=== PATIENT | female | born 1985 | race Hispanic/Latino ===

== ENCOUNTER 2023-10-27 17:49 | Emergency (ER) | payer BC ==
[~2023-10-27] VITALS: Ht 167.6 cm; Wt 82.6 kg
[2023-10-27 18:26] LABS: INFLUENZA TYPE A Negative For Type A (NEGATIVE); INFLUENZA TYPE B Negative For Type B (NEGATIVE)
[2023-10-27 18:49] LABS: COVID19 (SARS ANTIGEN RAPID) PRESUMPTIVE NEGATIVE (NEGATIVE)
[2023-10-27] MEDS: 0.9%NACL 1000ML 1,000 ML IV ONE (18:59)
[2023-10-27] MEDS: acetaMINOPHEN 500 MG TABLET PO ONE (19:00)
[2023-10-27] MEDS: ONDANSETRON 4MG INJ IVP ONE (19:00)
[2023-10-27 19:11] LABS: BASOPHILS # (AUTO) 0.01 K/uL (0.00-0.20); BASOPHILS % (AUTO) 0.3 % (0.0-5.0); HEMATOCRIT 27.8 % (36-48); IMMATURE GRANULOCYTE ABSOLUTE 0.02 K/uL (0-1); LYMPHOCYTES # (AUTO) 0.4 K/uL (1.0-4.8); LYMPHOCYTES % (AUTO) 14.6 % (21.0-51.0); MEAN CORPUSCULAR HEMOGLOBIN 24.9 pg (27.0-33.0); MEAN CORPUSCULAR HGB CONC 30.9 g/dL (32.0-36.0); MEAN CORPUSCULAR VOLUME 80.3 fL (79-99); MONOCYTES # (AUTO) 0.2 K/uL (0.1-1.0); MONOCYTES % (AUTO) 6.6 % (3.0-13.0); NEUTROPHILS # (AUTO) 2.4 K/uL (1.8-7.7); NEUTROPHILS % (AUTO) 77.8 % (40.0-77.0); PLATELET COUNT (AUTO) 150 K/uL (130-400); RED BLOOD CELL COUNT(AUTO) 3.46 MIL/uL (4.00-5.50); RED CELL DISTRIBUTION WIDTH 17.8 % (11.0-15.5)
[2023-10-27 19:59] LABS: CREATININE 1.1 mg/dL (0.5-1.0); POTASSIUM 3.1 mmol/L (3.5-5.1)
[2023-10-27 20:24] LABS: APPEARANCE,URINE CLEAR (CLEAR); BILIRUBIN,URINE NEGATIVE (NEGATIVE); COLOR,URINE COLORLESS (YELLOW); GLUCOSE, URINE (UA) NEGATIVE (NEGATIVE); KETONES,URINE NEGATIVE (NEGATIVE); LEUKOCYTE ESTERASE ,URINE NEGATIVE Leu/uL (NEGATIVE); NITRATE,URINE NEGATIVE (NEGATIVE); OCCULT BLOOD,URINE NEGATIVE (NEGATIVE); PROTEIN,URINE NEGATIVE (NEGATIVE); UROBILINOGEN,URINE 0.2 mg/dL (0.2-1.0)
[2023-10-27 20:30] LABS: ADD UA MICROSCOPIC YES; HCG,QUALITATIVE URINE NEGATIVE (NEGATIVE)
[2023-10-27 20:31] LABS: BACTERIA,URINE RARE /HPF (None Seen); MUCUS,URINE RARE LPF (None Seen); OTHER CASTS, URINE 1 /LPF (None Seen); SQUAMOUS EPITHELIAL CELL,UR FEW /HPF (0-2)
[2023-10-27] MEDS: POTASSIUM BICARB/CIT AC 25 MEQ TABLET.EFF PO ONE (20:31)
[2023-10-27 20:39] LABS: BAND NEUTROPHILS % (MANUAL) 18 % (0-2); EOSINOPHILS % (MANUAL) 1 % (1-6); LYMPHOCYTES % (MANUAL) 11 % (22-44); MONOCYTES % (MANUAL) 3 % (2-9); SEGMENTED NEUTROPHILS % 67 % (40-70); TOTAL CELLS COUNTED 100
[2023-10-27 20:40] LABS: MAN.DIFF COMMENT-IMPRESSION MANUAL DIFFERENTIAL
[2023-10-27] MEDS: KETOROLAC 30MG VIAL (30MG/ML) IVP ONE (21:03)
[2023-10-27 21:05] VITALS: TEMP 101.4
[2023-10-27] MEDS ORDERED: ONDA-243 PO (22:27)
[2023-10-27 22:33] VITALS: BP 132/72; PULSE 100; RESP 18; O2SAT 99
== END 2023-10-27 22:37 | disposition home or self-care (01) ==
LOC: EDH 17:49
DX: B34.9 Viral infection, unspecified (principal); D64.9 Anemia, unspecified; R50.9 Fever, unspecified; H92.03 Otalgia, bilateral; E03.9 Hypothyroidism, unspecified; E78.00 Pure hypercholesterolemia, unspecified; Z20.822 Contact with and (suspected) exposure to COVID-19; Z79.899 Other long term (current) drug therapy
CPT/HCPCS: 99284; 96374; 96361; 96375; 87426; 80048; 85025; 87880; 87804 ×2; 81001; 81025; 36415; J7030; J2405; J1885

== ENCOUNTER 2024-04-01 06:17 | Emergency (ER) | payer BC ==
[~2024-04-01] VITALS: Ht 167.6 cm; Wt 81.6 kg
[~2024-04-01 06:17] MED LIST: ONDA-243 PO
--- NOTE | 2024-04-01 06:22 | NUR ---
COVID, FLU, STREP SWABS COLLECTED AND SENT [facility] PROVIDED
--- NOTE | 2024-04-01 06:34 | ERN ---
ED Note History of Present Illness Stated Complaint: COUGH, NAUSEA, SOB Chief Complaint: Cough Time Seen by MD: 06:36 Dictation: This is a 38-year-old female who presented to the emergency room with complaints of generalized body weakness cough shortness of breath that started yesterday. She denied any hemoptysis or fevers. No recent travel or new pets at home. She also reported that her she felt her face was puffy with sinus congestion. Very mild sputum production Temperature 97.7 pulse 78 respirations 16 blood pressure 164/74 with a pulse oximetry of 98% on room Her chronic medical problems include hypercholesterolemia and hypothyroidism Allergies: Coded Allergies: No Known Allergies (Unverified Allergy, Unknown, 10/27/23) Home Meds Active Scripts Azithromycin (Azithromycin) 250 Mg Tablet, 1 TAB PO AD for 5 Days, #6 TAB 0 Refills 2 the first day followed by 1 for days 2-5 Prov:RADHA CHAPPELL MD 04/01/24 Prednisone (Prednisone) 20 Mg Tablet, 1 TAB PO AD for 6 Days, #14 TAB 0 Refills TAKE 1 TAB BY MOUTH THREE TIMES PER DAY X3 DAYS, THEN TAKE 1 TAB BY MOUTH TWICE A DAY X2 DAYS, THEN TAKE 1 TAB BY MOUTH ONCE A DAY X1 DAY. Prov:RADHA CHAPPELL MD 04/01/24 Ondansetron (Ondansetron Odt) 4 Mg Tab.rapdis, 4 MG PO Q6HPRN PRN for nausea, #16 TAB 0 Refills Prov:HALEY MULLER MD 10/27/23 Past Medical History Past Medical History: High Cholesterol, Hypothyroid Surgical History: Surgical History Other: UMBILICAL HERNIA REPAIR Family History: Negative Social History: Negative RN Note Reviewed/Agreed w/PFSH: Yes Review of System Dictation Constitutional: Negative for fever,chills, and weight loss Eyes: Negative for injury, pain,redness, and discharge ENT: Negative for injury,pain or swelling Cardiovascular: Negative for chest pain, palpitations, and edema Respiratory: Positive for shortness of breath, cough, and wheezing, Abdomen/GI: Negative for abdominal pain, nausea, vomiting, diarrhea, and constipation Back: Negative for injury and pain : Negative for injury, bleeding and discharge MS/Extremity: Negative for injury and deformity Skin: Negative for rash, and discoloration Neuro: Negative for headache, weakness, numbness, tingling, and seizure Psych: Negative for suicide ideation, homicidal ideation, and hallucinations Initial Vital Sign VS Vital Signs Date Time Temp Pulse Resp B/P (MAP) Pulse Ox O2 Delivery O2 Flow Rate FiO2 04/01/24 06:18 97.7 78 16 164/74 100 Room Air Physical Exam Dictation General: awake, alert, NAD obese female Head/Face: Normocephalic, atraumatic Eyes: PERRL, EOMI, vision at baseline ENT: oral cavity clear, TMs clear, sinus congestion Neck: Trachea midline, supple, no nuchal rigidity Cardiovascular: RRR, normal S1/S2, No MRGs, no JVD Respiratory: Bilateral coarse rhonchi Abdomen: Soft, non-tender, non-distended, normal bowel sounds, no guarding or rebound. Skin: Warm, dry, normal turgor, no rash MS/Extremity: Pulses equal, no cyanosis, neurovascular intact, FROM Neuro: COAx4, GCS 15, strength 5/5, CN 2-12 intact, normal cerebellar exam, normal gait, Psych: Normal behavior, mood, and affect normal Extremities-trace edema without any palpable cords, Homans sign is negative Results (Laboratory/Radiology) Laboratory/Radiology Laboratory Tests Test 04/01/24 06:22 04/01/24 06:52 Influenza Type A Antigen Negative For Type A Influenza Type B Antigen Negative For Type B SARS-CoV-2, RNA, NAAT NEGATIVE SARS CoV-2 Group A Streptococcus Rapid negative (NEGATIVE) Urine Color LIGHT-YELLOW (YELLOW) Urine Appearance CLOUDY (CLEAR) H Urine pH 7.0 (5.0-8.0) Urine Specific [place] 1.017 (1.001-1.031) Urine Protein 20 mg/dL (NEGATIVE) H Urine Glucose (UA) NEGATIVE mg/dL (NEGATIVE) Urine Ketones NEGATIVE mg/dL (NEGATIVE) Urine Occult Blood NEGATIVE (NEGATIVE) Urine Nitrate NEGATIVE (NEGATIVE) Urine Bilirubin NEGATIVE mg/dL (NEGATIVE) Urine Urobilinogen 0.2 mg/dL (0.2-1.0) Urine Leukocyte Esterase NEGATIVE Ashish/uL Urine RBC 0-1 /HPF (0-1) Urine WBC None /HPF (0-1) Urine Squamous Epithelial Cells FEW /HPF (0-2) Urine Bacteria None /HPF (None Seen) Urine HCG, Qualitative NEGATIVE (NEGATIVE) Labs Reviewed?: Yes ED Course ED Course Orders Procedure Category Date Status Time Covid Rna Naat LAB 04/01/24 Complete 06:21 Influenza Type A & B, LAB 04/01/24 Complete Rapid 06:21 Rapid (Group A Strep) LAB 04/01/24 Complete 06:21 Urinalysis Profile LAB 04/01/24 Complete 06:21 ,Urine Test LAB 04/01/24 Complete 06:21 Methylprednisolone PHA 04/01/24 Complete Succ 40mg (Solu-Medro 07:00 Guaifenesin/Dextromethorphan PHA 04/01/24 Complete (Mucinex Dm 07:00 Current Medications Medications (Trade) Dose Ordered Sig/Naomi Route PRN Reason Start Time Stop Time Status Last Admin Dose Admin Guaifenesin/ Dextromethorphan (MUCinex DM 1 EACH TAB.SR.12H) 2 each ONCE ONCE PO 04/01/24 07:00 04/01/24 07:05 DC Methylprednisolone Sodium Succinate (Solu-medROL 40MG) 40 mg ONCE ONCE IM 04/01/24 07:00 04/01/24 07:05 DC Vital Signs Date Time Temp Pulse Resp B/P (MAP) Pulse Ox O2 Delivery O2 Flow Rate FiO2 04/01/24 06:18 97.7 78 16 164/74 100 Room Air We will perform diagnostic labs, and administer medications according to the patient's complaint. Once the results are available, will review and personally interpreted the labs to rule out any acute life-threatening emergency the trach require immediate intervention and treatment. I will then re-evaluate the patient after treatment and diagnostic exams have return to determine whether the patient requires any further testing, can safely be discharged home or need further admission to hospital for additional treatment and evaluation. Labs reviewed urinalysis is unremarkable for any acute infection. Viral serology negative for influenza, COVID, streptococcal rapid antigen. We will give her a short course of steroids and empiric antibiotic as outpatient. Medical Decision Making MDM MDM: Differential diagnosis: Viral illness, URI, bronchitis, sinusitis, postnasal drip with allergic rhinitis Rationale: Tests considered and ordered secondary to shared decision making include: Previous outside records reviewed: Old ER visits. Risk of complication and/or morbidity or mortality of patient management: None Medications-Per medication reconciliation Need for hospitalization: Patient does not meet criteria for hospitalization. Need for emergency major/minor surgery: No There are no social concerns with this patient. Prescription drug management Prescriptions will include symptomatic care Patient's prior external medical records from other ER visits were reviewed by me as indicated. Prior testing and results from previous visits were reviewed. Prior tests were taken into account with medical decision making and resource utilization, independent historian/historians were used to obtain complete medical history. I independently interpreted the test that were performed, results were reviewed by me and considered findings on radiology if ordered. Medical management and examination interpretation discussions were had by me with other qualified healthcare professionals as indicated for the patient's care. Problem List Problem List: (1) Viral illness (2) Bronchitis (3) Hypothyroidism DX & DISP Disposition: Discharge Departure Impression: Primary Impression: Viral illness Additional Impressions: Bronchitis, Hypothyroidism Condition: Stable Scripts Azithromycin (Azithromycin) 250 Mg Tablet 1 TAB PO AD for 5 Days, #6 TAB 0 Refills 2 the first day followed by 1 for days 2-5 Prov: RADHA CHAPPELL MD 04/01/24 Prednisone (Prednisone) 20 Mg Tablet 1 TAB PO AD for 6 Days, #14 TAB 0 Refills TAKE 1 TAB BY MOUTH THREE TIMES PER DAY X3 DAYS, THEN TAKE 1 TAB BY MOUTH TWICE A DAY X2 DAYS, THEN TAKE 1 TAB BY MOUTH ONCE A DAY X1 DAY. Prov: RADHA CHAPPELL MD 04/01/24 Additional Instructions: Patient and the caregiver have been informed of all the diagnostic tests and the imaging conducted during the today's visit to the emergency room and has verbali zed understanding of the results I have personally reviewed and interpreted all diagnostic exams performed here in the ER today as well as the vital signs documented by the nursing staff. The patient is now being discharged to home and should follow up with the primary care physician or the specialist as directed by the ER staff. Follow-up with primary care provider in 1 to 2 days. Take medications as directed here in the emergency room. Okay to continue home medications unless otherwise discussed during your visit in the emergency room today. Return to your nearest emergency room if symptoms worsen or if there is no improvement. Call 911 if you need immediate assistance. Take Tylenol or Motrin [id number] as needed and if no contraindications are present. Increase oral hydration. A wound culture or urine culture was ordered here in the emergency room department please follow-up with primary care provider and advise them to get repeat ports from our facility. If you had any Vel wrap/splints ismael t were applied here, please do not remove them until you see your primary care or specialty. Referrals: NONE (PCP) RADHA CHAPPELL MD Apr 01, 2024 06:34
[2024-04-01 06:55] LABS: SARS-CoV-2, RNA, NAAT NEGATIVE SARS CoV-2 (NEGATIVE)
[2024-04-01 06:59] LABS: APPEARANCE,URINE CLOUDY (CLEAR); BILIRUBIN,URINE NEGATIVE (NEGATIVE); COLOR,URINE LIGHT-YELLOW (YELLOW); GLUCOSE, URINE (UA) NEGATIVE (NEGATIVE); KETONES,URINE NEGATIVE (NEGATIVE); LEUKOCYTE ESTERASE ,URINE NEGATIVE Leu/uL (NEGATIVE); NITRATE,URINE NEGATIVE (NEGATIVE); OCCULT BLOOD,URINE NEGATIVE (NEGATIVE); PROTEIN,URINE 20 mg/dL (NEGATIVE); UROBILINOGEN,URINE 0.2 mg/dL (0.2-1.0)
[2024-04-01 06:59] LABS: RAPID GROUP A STREP negative (NEGATIVE)
[2024-04-01 07:03] LABS: HCG,QUALITATIVE URINE NEGATIVE (NEGATIVE)
[2024-04-01 07:07] LABS: ADD UA MICROSCOPIC YES
[2024-04-01] MEDS ORDERED: AZIT250T9 PO (07:07)
[2024-04-01] MEDS ORDERED: PRED20TA3 PO (07:07)
[2024-04-01 07:08] LABS: MUCUS,URINE FEW LPF (None Seen); RBC,URINE 0-1 /HPF (0-1); SQUAMOUS EPITHELIAL CELL,UR FEW /HPF (0-2)
[2024-04-01 07:10] LABS: INFLUENZA TYPE A Negative For Type A (NEGATIVE); INFLUENZA TYPE B Negative For Type B (NEGATIVE)
[2024-04-01 07:30] VITALS: BP 149/70; PULSE 74; RESP 16; TEMP 98.1; O2SAT 99
[2024-04-01] MEDS: guaiFENesin/dextroMETHORphan 1 EACH TAB.SR.12H PO ONE (07:54)
[2024-04-01] MEDS: Solu-medROL 40MG VIAL IM ONE (07:54)
== END 2024-04-01 08:06 | disposition home or self-care (01) ==
LOC: EDH 06:17
DX: B34.9 Viral infection, unspecified (principal); J40 Bronchitis, not specified as acute or chronic; E03.9 Hypothyroidism, unspecified; E78.00 Pure hypercholesterolemia, unspecified; Z20.822 Contact with and (suspected) exposure to COVID-19
CPT/HCPCS: 99284; 87635; 87880; 87804 ×2; 81001; 81025; 96372; J2919

== ENCOUNTER 2024-07-03 19:46 | Emergency (ER) | payer BC ==
[~2024-07-03] VITALS: Ht 167.6 cm; Wt 90.3 kg
[~2024-07-03 19:46] MED LIST changes: +AZIT250T9 PO; +PRED20TA3 PO
[2024-07-03] MEDS: TETRACAINE HCL 0.5% 4 ML OPHTH SOLN OP STA (20:13)
[2024-07-03] MEDS ORDERED: OFLO5DRO OU (20:28)
--- NOTE | 2024-07-03 20:28 | ERN ---
ED Note History of Present Illness Stated Complaint: C/O PAIN TO EYES ONSET THIS AM Chief Complaint: Eye Problems Time Seen by MD: 19:52 Time Seen by Midlevel: 19:58 Dictation: 38-year-old female with a history of hypothyroidism coming in with complaints of bilateral eye tearing in pain and crusting however states right side hurts more since this morning. Patient states yesterday she was working out in the [employer] and there was a lot of went and does not know if something got in her eye. Allergies: Coded Allergies: No Known Allergies (Unverified Allergy, Unknown, 10/27/23) Home Meds Active Scripts Azithromycin (Azithromycin) 250 Mg Tablet, 1 TAB PO AD for 5 Days, #6 TAB 0 Refills 2 the first day followed by 1 for days 2-5 Prov:RADHA CHAPPELL MD 04/01/24 Prednisone (Prednisone) 20 Mg Tablet, 1 TAB PO AD for 6 Days, #14 TAB 0 Refills TAKE 1 TAB BY MOUTH THREE TIMES PER DAY X3 DAYS, THEN TAKE 1 TAB BY MOUTH TWICE A DAY X2 DAYS, THEN TAKE 1 TAB BY MOUTH ONCE A DAY X1 DAY. Prov:RADHA CHAPPELL MD 04/01/24 Ondansetron (Ondansetron Odt) 4 Mg Tab.rapdis, 4 MG PO Q6HPRN PRN for nausea, #16 TAB 0 Refills Prov:HALEY MULLER MD 10/27/23 Past Medical History Past Medical History: Hypothyroid Surgical History: Surgical History Other: UMBILICAL HERNIA REPAIR Family History: Negative Social History: Negative LMP: Jul 03, 2024 Review of System Dictation Constitutional: Negative for fever,chills, and weight loss Eyes: Negative for injury, positive for bilateral eye redness, and drainage ENT: Negative for injury,pain or swelling Cardiovascular: Negative for chest pain, palpitations, and edema Respiratory: Negative for shortness of breath, cough, and wheezing, Abdomen/GI: Negative for abdominal pain, nausea, vomiting, diarrhea, and constipation Back: Negative for injury and pain : Negative for injury, bleeding and discharge MS/Extremity: Negative for injury and deformity Skin: Negative for rash, and discoloration Neuro: Negative for headache, weakness, numbness, tingling, and seizure Psych: Negative for suicide ideation, homicidal ideation, and hallucinations Review of Systems: was completed Initial Vital Sign VS Vital Signs Date Time Temp Pulse Resp B/P (MAP) Pulse Ox O2 Delivery O2 Flow Rate FiO2 07/03/24 19:49 98.2 80 20 156/105 100 Room Air Physical Exam Dictation General: awake, alert, NAD Head/Face: Normocephalic, atraumatic Eyes: PERRL, EOMI, vision at baseline, there was some yellow discharge on the right eye, no discharge on the left. No corneal abrasion or ulcers identified under fluorescein stain. ENT: oral cavity clear, TMs clear, no signs of infection Neck: Trachea midline, supple, no nuchal rigidity Cardiovascular: RRR, normal S1/S2, No MRGs, no JVD Respiratory: CTAB, no respiratory distress, No rales or wheezes Abdomen: Soft, non-tender, non-distended, normal bowel sounds, no guarding or rebound. Skin: Warm, dry, normal turgor, no rash MS/Extremity: Pulses equal, no cyanosis, neurovascular intact, FROM Neuro: COAx4, GCS 15, strength 5/5, CN 2-12 intact, normal cerebellar exam, normal gait, Psych: Normal behavior, mood, and affect normal Results (Laboratory/Radiology) Labs Reviewed?: Yes ED Course ED Course Orders Procedure Category Date Status Time Tetracaine Hcl PHA 07/03/24 Complete (Pontocaine 0.5% 19:55 *Nursing CPOE 07/03/24 Transmitted Communication: 19:55 Current Medications Medications (Trade) Dose Ordered Sig/Naomi Route PRN Reason Start Time Stop Time Status Last Admin Dose Admin Tetracaine HCl (Pontocaine 0.5% Ophth Soln) 2 drop ONCE STAT OP 07/03/24 19:55 07/03/24 19:58 DC 07/03/24 20:13 Vital Signs Date Time Temp Pulse Resp B/P (MAP) Pulse Ox O2 Delivery O2 Flow Rate FiO2 07/03/24 19:49 98.2 80 20 156/105 100 Room Air Medical Decision Making MDM MDM: 38-year-old female with a history of hypothyroidism coming in with complaints of bilateral eye tearing in pain and crusting however states right side hurts more since this morning. Patient states yesterday she was working out in the [employer] coop and there was a lot of went and does not know if something got in her eye. No corneal abrasion did not find in the right eye. Findings on eye exam patient isn't with conjunctivitis. Yellow discharge along the borderline and crusting. We will discharge patient with antibiotics drop. Educated to follow up with hardwood floor finisher in 1-2 days and to return to the hospital symptoms worsen. Patient verbalized understanding, answered all quest ions. Differential diagnosis: Foreign body eye, corneal abrasion, conjunctivitis, allergies Rationale: Tests considered and ordered secondary to shared decision making include: Previous outside records reviewed: Old ER visits. Risk of complication and/or morbidity or mortality of patient management: None Medications-Per medication reconciliation Need for hospitalization: Patient does not meet criteria for hospitalization. Need for emergency major/minor surgery: No There are no social concerns with this patient. Prescription drug management Prescriptions will include symptomatic care Patient's prior external medical records from other ER visits were reviewed by me as indicated. Prior testing and results from previous visits were reviewed. Prior tests were taken into account with medical decision making and resource utilization, independent historian/historians were used to obtain complete medical history. I independently interpreted the test that were performed, results were reviewed by me and considered findings on radiology if ordered. Medical management and examination interpretation discussions were had by me with other qualified healthcare professionals as indicated for the patient's care. DX & DISP Disposition: Discharge Departure Impression: Primary Impression: Conjunctivitis Condition: Stable Scripts Ofloxacin (Ofloxacin) 0.3 % Drops 1 DROP OU QID for 7 Days, #5 ML 0 Refills Prov: BOLA SOUSA NP 07/03/24 Additional Instructions: Please follow up with the hardwood floor finisher in 1-2 days. Return to the hospital if any worsening symptoms. Referrals: SELF,REFERRAL (PCP) Time of Disposition: 20:25 I have reviewed the case, and I agree with, Diagnosis and Plan BOLA SOUSA NP Jul 03, 2024 20:28
[2024-07-03 20:45] VITALS: BP 148/91; PULSE 81; RESP 18; TEMP 98; O2SAT 100
--- NOTE | 2024-07-03 20:50 | NUR ---
PTS EYES WERE RINSED WITH NS. PTS STATES SOME RELIEF TO LEFT EYE BUT CONTINUES WITH REPORTED IRRITATION TO RIGHT AND NOTED REDNESS.
== END 2024-07-03 20:55 | disposition home or self-care (01) ==
LOC: EDH 19:46
DX: H10.9 Unspecified conjunctivitis (principal); E03.9 Hypothyroidism, unspecified; Z79.899 Other long term (current) drug therapy
CPT/HCPCS: 99283